=== PATIENT | male | born 1990 | race Caucasian/White ===

== ENCOUNTER 2020-01-16 14:08 | Emergency (ER) | payer SELFPAY ==
[2020-01-16 14:27] VITALS: BP 128/71; PULSE 66; RESP 18; TEMP 36.7; O2SAT 98
--- NOTE | 2020-01-16 15:18 | ED.EYEPROB ---
HPI - Eye Problem General Chief complaint: Eye Problems Stated complaint: left eye infection Time Seen by Provider: 01/16/20 14:30 Source: patient Mode of arrival: ambulatory Limitations: no limitations History of Present Illness HPI Narrative: Patient is a 29-year-old male who presents with left eye irritation for several days was placed on gentamicin by urgent care notes that he continues to have discomfort patient notes redness and tearing from the eye denies injury trauma similar occurrence in the past or any URI symptoms Related Data Allergies Allergy/AdvReac Type Severity Reaction Status Date / Time No Known Allergies Allergy Unverified 10/23/18 11:15 Review of Systems Review of Systems: All systems reviewed & are unremarkable except as noted in HPI and below PMFSH Social History Social History (Updated 01/16/20 @ 15:19 by Vitaly Muhammad PA-C) Smoking status: Current every day smoker Exam Narrative: Exam Narrative: GENERAL: Well-appearing, well-nourished, and in no acute distress. HEAD: Normocephalic, atraumatic. EYES: PERRLA and EOMI. left eye with conjunctival injection with clear discharge eyelids everted unremarkable no foreign bodies noted SKIN: Warm, dry, no rash. NEURO: No focal deficits. Alert and oriented x3. PSYCH: Normal mood and affect. Course Course Emergency Course: Patient in the room in no distress aware of case findings treatment plan and diagnosis agreeing to follow-up as directed or to return if symptoms worsen or concerns. Patient will be referred to ophthalmology and have his medication changed at this time Vital Signs Vital signs: Vital Signs Temperature 98.1 F 01/16/20 14:27 Pulse Rate 66 01/16/20 14:27 Respiratory Rate 18 01/16/20 14:27 Blood Pressure 128/71 01/16/20 14:27 Pulse Oximetry 98 01/16/20 14:27 Temperature 98.1 F 01/16/20 14:27 Pulse Rate 66 01/16/20 14:27 Respiratory Rate 18 01/16/20 14:27 Blood Pressure 128/71 01/16/20 14:27 Pulse Oximetry 98 01/16/20 14:27 MDM - Eye Problem MDM Narrative Medical decision making narrative: Patient with conjunctivitis felt appropriate for outpatient reevaluation given ophthalmology follow-up medications will be changed patient agreeing to follow-up as directed Discharge Plan Discharge Clinical Impression: Conjunctivitis Patient Disposition: Home, Self-Care Condition: Stable Instructions: Antibiotic Form, Conjunctivitis (ED) Additional Instructions: Follow-up with ophthalmology first thing Saturday to set up for reevaluation in clinic Return if symptoms worsen or concerns or any increase in redness swelling pain fever over 100.5 or any visual changes Follow patient education sheets Only take medications as directed Use [id number] preservative-free tears every 2 hours for symptom relief Prescriptions: New erythromycin 5 mg/gram (0.5 %) ointment 0.5 inch ophthalmic (eye) QID Qty: 1 RF: 0 Follow-up/Referrals: PHYSICIAN,[facility]W [facility]EARCHER [Primary Care Provider] - Irais Kerr [Outside] Irais Juarez [Outside]
[2020-01-16 15:36] VITALS: BP 135/78; PULSE 78; RESP 18; O2SAT 99
== END 2020-01-16 15:38 | disposition home or self-care (01) ==
PROVIDERS: Emergency Provider Emergency Medicine
DX: H10.9 Unspecified conjunctivitis (principal); F17.200 Nicotine dependence, unspecified, uncomplicated
CPT/HCPCS: 99283

== ENCOUNTER 2020-04-14 00:18 | Emergency (ER) | payer SELFPAY ==
--- NOTE | ~2020-04-14 | CT_ITS ---
EXAMINATION: CT orbit BI w con DATE: 04/14/2020 02:26 INDICATION: Right periorbital swelling. TECHNIQUE: Computed tomography (CT) of the orbits was performed with 75 mL Omnipaque 350 intravenous contrast. Automated exposure control and iterative reconstruction technique were employed. The dose-l ength product was 214.78 mGy-cm. COMPARISON: None. FINDINGS: There is right periorbital soft tissue swelling and nasal swelling. No orbital involvement. There is mucosal thickening in the paranasal sinuses. There are bilateral otomastoid effusions. Ther e is rightward deviation of the nasal septum. No fracture. IMPRESSION: 1. Right periorbital soft tissue swelling and nasal swelling. No orbital involvement. 2. Bilateral otomastoid effusions. Reviewed, dictated and finalized at location A. YS[facility] DIRECTOR IMPRESSION: 1. Right periorbital soft tissue swelling and nasal swelling. No orbital involv ement. 2. Bilateral otomastoid effusions.
[2020-04-14 00:20] VITALS: BP 139/76; PULSE 104; RESP 16; TEMP 36.2; O2SAT 100
[2020-04-14] MEDS: KETOROLAC 30 MG/ML VIAL (*BKC) IV PUSH (01:07)
[2020-04-14] MEDS: SODIUM CHLORIDE 0.9% IV 1,000 ML 999 ML IV CONT (01:07)
[2020-04-14 01:15] LABS: Basophils Absolute Auto 0.1 K/mm3 (0.0-0.1); Basophils Percent Auto 0.5 % (0.2-1.2); Eosinophils Absolute Auto 0.1 K/mm3 (0-0.3); Eosinophils Percent Auto 1.2 % (0-4.4); Hematocrit 44.8 % (42.0-52.0); Immature Granulocyte Absolute 0.05 K/mm3 (0.00-0.031); Immature Granulocyte Percent A 0.4 % (0-0.5); Lymphocytes Absolute Auto 2.61 K/mm3 (0.9-3.2); Lymphocytes Percent Auto 21.5 % (18.3-44.2); Mean Corpuscular HGB Conc 33.5 g/dl (32-36); Mean Corpuscular Hemoglobin 30.7 pg (26-34); Mean Corpuscular Volume 91.8 fl (80-100); Mean Platelet Volume 9.1 fl (7.4-10.4); Monocytes Percent Auto 8.1 % (2.6-8.5); Neutrophils Absolute Auto 8.3 K/mm3 (1.3-6.7); Neutrophils Percent Auto 68.3 % (45.5-73.1); Platelet Count Result 282 k/mm3 (150-375); Red Blood Count 4.88 M/mm3 (4.6-6.20); Red Cell Distribution Width 12.4 % (11.5-14.5); White Blood Count 12.1 K/mm3 (4.5-10.0)
[2020-04-14] MEDS: CLINDAMYCIN 900 MG/D5W 50 ML 900 MG/50 ML PIGGYBACK 50 MG IVPB (01:15)
--- NOTE | 2020-04-14 01:15 | PC.NURSE ---
SL inserted. patient medicated as ordered. labs sent. wound specimen sent per order. patient aware of current treatment plan and expected wait time.
[2020-04-14 01:28] LABS: Anion Gap 5 mmol/L (8-16); Blood Urea Nitrogen 13 mg/dL (9-20); Calcium 9.4 mg/dL (8.4-10.2); Carbon Dioxide 31 mmol/L (22-30); Chloride 103 mmol/L (98-107); Estimated Glomerular Filt Rate > 60; Glucose 154 mg/dL (75-110); Potassium 3.7 mmol/L (3.4-5.0); Sodium 139 mmol/L (137-145)
--- NOTE | 2020-04-14 01:29 | ED.GENADULT ---
HPI - General Adult General Chief complaint: Eye Problems Stated complaint: ingrown hair on eyebrow Time Seen by Provider: 04/14/20 00:33 Source: patient Mode of arrival: ambulatory Limitations: no limitations History of Present Illness HPI narrative: Patient is a 29-year-old male who presents to emergency department for evaluation wound to the inner aspect of the right side of the nose that has been for the last couple of days patient has been attempting to squeeze the lesion with no drainage has some swelling and tenderness along the lateral aspect of the right side of the nose and brow but now some redness extending into the inferior region just below the eye. Patient denies any visual changes. Patient denies fever chills nausea vomiting. Patient does not take anything other than the hydrocodone for his symptoms. Related Data Allergies Allergy/AdvReac Type Severity Reaction Status Date / Time No Known Allergies Allergy Verified 04/14/20 00:30 Review of Systems Review of Systems: All systems reviewed & are unremarkable except as noted in HPI and below PMFSH Social History Social History Smoking status: Current every day smoker Exam Narrative: Exam Narrative: GENERAL: Well-appearing, well-nourished, and in no acute distress. HEAD: Normocephalic, atraumatic. EYES: PERRLA and EOMI. no conjunctival injection or discharge ENT: Nares clear, no rhinorrhea or epistaxis. Mucous membranes moist. CHEST: Clear to auscultation. No respiratory distress. No wheezes rales or rhonchi HEART: Regular rate and rhythm. No murmur heard. EXTREMITIES: Normal range of motion. No edema. SKIN: Warm, dry, no rash. Patient with red tender area along the inner aspect of the brow along the nose adjacent to the nasal bridge with swelling and tenderness small amount of erythema just below the right eye no circumferential swelling NEURO: No focal deficits. Alert and oriented x3. PSYCH: Normal mood and affect. Course Course Emergency Course: Patient was evaluated in the emergency department blood work wound cultures were obtained IV antibiotics were given my attending and myself saw the patient and are in agreements that the patient can be tried on an outpatient basis with antibiotics given that the lesion was drained patient prefers to go home was offered in hospital therapy and agrees to return if symptoms worsen and was provided with reasons to return Vital Signs Vital signs: Vital Signs Temperature 97.2 F L 04/14/20 00:20 Pulse Rate 104 H 04/14/20 00:20 Respiratory Rate 16 04/14/20 00:20 Blood Pressure 139/76 04/14/20 00:20 Pulse Oximetry 100 04/14/20 00:20 Temperature 97.2 F L 04/14/20 00:20 Pulse Rate 104 H 04/14/20 00:20 Respiratory Rate 16 04/14/20 00:20 Blood Pressure 139/76 04/14/20 00:20 Pulse Oximetry 100 04/14/20 00:20 Procedures Abscess I/D face: Date of Incision: 04/14/20 Time of Incision: 01:33 Side (if applicable): right Technique: needle aspiration (Single straight incision with 18-gauge needle) Packing used?: none I&D Results: Pus and Blood Complications: pain Medical Decision Making MDM Narrative Medical decision making narrative: Patient evaluated for abscess along the nasal bridge will be discharged with antibiotics orally provided with reasons to return agreeing to do so if symptoms worsen Vital Signs Vital Signs: Vital Signs Temperature 97.2 F L 04/14/20 00:20 Pulse Rate 104 H 04/14/20 00:20 Respiratory Rate 16 04/14/20 00:20 Blood Pressure 139/76 04/14/20 00:20 Pulse Oximetry 100 04/14/20 00:20 Temperature 97.2 F L 04/14/20 00:20 Pulse Rate 104 H 04/14/20 00:20 Respiratory Rate 16 04/14/20 00:20 Blood Pressure 139/76 04/14/20 00:20 Pulse Oximetry 100 04/14/20 00:20 Lab Data Result diagrams: 04/14/20 00:59 04/14/20 00:59
[2020-04-14 02:54] VITALS: BP 128/81; PULSE 98; RESP 16; O2SAT 100
== END 2020-04-14 02:56 | disposition home or self-care (01) ==
PROVIDERS: Emergency Medicine Emergency Medical Services; Emergency Provider Emergency Medicine
DX: J34.0 Abscess, furuncle and carbuncle of nose (principal)
CPT/HCPCS: 10060; 36415; 70481; 80048; 85025; 87070; 87075; 87076; 87205; 96365; 96366; 96375; 99284; J1885; J7030; Q9967